=== PATIENT | female | born 1995 | race African-American/Black ===

== ENCOUNTER 2020-10-14 11:02 | Emergency (ER) | payer SELFPAY ==
[~2020-10-14] VITALS: Ht 170.2 cm; Wt 86.2 kg
[2020-10-14 11:13] VITALS: BP 131/80
--- NOTE | 2020-10-14 12:07 | NUR ---
Patient discharged to home in stable condition. Written and verbal after care instructions given. Patient verbalizes understanding of instruction.
== END 2020-10-14 12:08 | disposition home or self-care (01) ==
LOC: ER 11:09
DX: S91.312A Laceration without foreign body, left foot, initial encounter (principal); W25.XXXA Contact with sharp glass, initial encounter; Y93.89 Activity, other specified; Y92.89 Other specified places as the place of occurrence of the external cause; Y99.8 Other external cause status
CPT/HCPCS: 99282; A6403